=== PATIENT | female | born 1975 ===

== ENCOUNTER 2021-10-17 01:23 | Observation (INO) ==
[2021-10-17] MEDS ORDERED: ONDANSETRON INJ 2 MG/ML 2 ML VIAL IV PRN (04:23)
[2021-10-17] MEDS ORDERED: DEXTROSE 50% 50 ML SYRINGE IV PRN (04:23)
[2021-10-17] MEDS ORDERED: GLUCOSE 40% GEL 15 GM TUBE PO PRN (04:23)
[2021-10-17] MEDS ORDERED: GLUCAGON FOR INJ 1 MG VIAL SQ PRN (04:23)
[2021-10-17] MEDS ORDERED: NITROGLYCERIN SL 0.4 MG/TAB TAB SL PRN (04:23)
[2021-10-17] MEDS ORDERED: CARBOHYDRATES FOR HYPOGLYCEMIA PO PRN (04:23)
[2021-10-17] MEDS ORDERED: GLUCOSE 10 TAB/TUBE PO PRN (04:23)
[2021-10-17] MEDS ORDERED: ACETAMINOPHEN 325 MG TAB PO PRN (04:23)
--- NOTE | 2021-10-17 04:30 | History & Physical Report ---
Date of Service October 17, 2021 Assessment & Plan (1) Syncope: Plan: 46yo female with DM presents as a transfer from [facility] with persistent chest pain x 2 weeks. Patient with a syncopal event, found to have positive HS-troponin and some non-specific EKG changes. Her chest pain description sounds very atypical - reproducible component, non- exertional. No chest pain for > 24 hours now -Telemetry monitoring -Check troponin -Check EKG -Cardiology consultation -Nitro PRN (2) Chest pain: Plan: As above. Atypical chest pain. -Check troponin -Check EKG -Cardiology consultation - patient was transferred for Cardiology assessment, possible stress test or cath (3) Diabetes type 2, controlled: Plan: Last AIC reported to be 6.9%. Patient is on Metformin -Hold metformin -Lantus 4u BID with ISS -Check A1C (4) Hypertension: Plan: Patient reports elevated blood pressure when she was in school. Has not been an issue for many years. No medications -Follow (5) Psoriatic arthritis: Plan: Chronic -Continue Sulfasalazine (6) Neuropathy: Plan: Chronic -Continue Cymbalta and Gabapentin F/E/N - Heplock. Check electrolytes and replete as needed. Heart healthy/CC diet as tolerated Ppx - Lovenox Code - Full Dispo - Admit med-tele Admission and Anticipated Discharge Date Admission Date: October 17, 2021 History of Present Illness Chief Complaint: chest pain Primary Care Provider: Justus Grace Yris Magaña is a pleasant 46yo female with history of DM, HTN, Psoriatic arthritis and ankylosing spondylitis transferred from [facility] for evaluation of chest pain, possible cardiac catheterization On 10/04/21 the patient went to the gym. She did some light weight lifting. No trauma or strain. She developed some chest pain the next day and was given a Medrol dose pack from her PCP and continued on Ibuprofen. The next day on 10/06/21 she had worsening pain. Pain substernal, bandlike with radiation into the arms, neck and back. She describes it as severe, 10/10. Pleuritic in nature at times as well as reproducible. No associated diaphoresis, nausea, shortness of breath or palpitations. She was seen in the ER in [place] and diagnosed with musculoskeletal chest pain. She had a normal EKG. Was given Tramadol which improved the pain and sent home. On 10/13/21 her chest pain reoccurred while she was driving. The pain was severe, bandlike with radiation into the arms and back. She went home and took some Ibuprofen. On 10/14/21 she reports sleeping most of the day. She got up in the afternoon to get her Ibuprofen and then developed nausea and had a syncopal event. Her witnessed the event. Says that her eyes rolled back in her head and she passed out into the shower. She was out approximately 1 minute. No seizure activity. She denies palpitations, shortness of breath or diaphoresis. Chest pain present at the time of syncope. She returned to the ER at [place]. EKG reportedly with non-specific TW changes. HS-troponin initially elevated at 649, then 80 on most recent. Patient was administered Nitro, Morphine and Zofran while in the ER at [place]. She reports relief with these medications. She was seen by the hospitalist team. She had an echocardiogram which showed and EF of 60 - 65% with no regional wall motion abnormalities She has not had chest pain since the afternoon of 10/15/21 Patient transferred at request of Cardiology for evaluation for cardiac catheterization given syncopal event with elevated troponin. She has no personal history of CAD, CHF or arrhythmia. Unable to obtain family history as she is adopted. Risk factors include DM, HTN. No prior stress tests or cardiac interventions. Patient is sedentary at baseline. Does note some SOB with minimal exertion such as walking stairs or hills. Allergies Allergy/AdvReac Type Severity Reaction Status Date / Time ciprofloxacin AdvReac Irritable Verified 10/17/21 04:03 Home Medications Medication Instructions Recorded Confirmed Type celecoxib 200 mg capsule 600 mg PO TID Neuropathy 10/17/21 10/17/21 History duloxetine 60 mg capsule,delayed mg PO 10/17/21 History release metformin 500 mg tablet 500 mg PO BID 10/17/21 10/17/21 History sulfasalazine 500 mg tablet 500 mg PO BID 10/17/21 10/17/21 History Past Med/Surg History Medical History (Updated 10/17/21 @ 04:49 by Mora Stevens DO) Ankylosing spondylitis Diabetes type 2, controlled Hypertension Neuropathy Psoriatic arthritis Surgical History (Updated 10/17/21 @ 04:49 by Mora Stevens DO) History of D&C History of hysteroscopy History of tonsillectomy Family History (Updated 10/17/21 @ 04:49 by Mora Stevens DO) Other Adopted Social History (Updated 10/17/21 @ 04:49 by Mora Stevens DO) Smoking Status: Never smoker Hx Alcohol Use: No Hx Substance Use: No Review of Systems Review of Systems: All systems reviewed & are unremarkable except as noted in HPI & below Physical Exam Physical Exam: General: patient resting comfortably, NAD, non-toxic in appearance, AA&O x 4 Skin: warm, dry, intact, no rashes or lesions HEENT: NC/AT, PERRL, EOMI, anicteric sclera, conjunctiva without injection, external ear normal to inspection and nontender, nares patent, moist mucus membranes, dentition intact, no oropharyngeal lesions, neck supple, trachea midline, no LAD, no thyromegaly, no JVD Heart: +S1/S2, regular, no m/r/g Lungs: equal air entry bilaterally, no rales/rhonchi/wheezes Abd: +BS, soft, NT/ND, no masses/organomegaly/ascites Ext: warm, 2+ pulses in UE/LE bilaterally, no clubbing/cyanosis or edema Neuro: nonfocal, patient AA&O x 4, speech intact, no facial droop, moving all extremities on command with equal strength 5/5 Results & Data Results & Data ([facility]) Vital Signs (Past 12 Hours) Vital Signs Pulse 10/17/21 04:03 81 PG Care Time/CCT Total # of Minutes Spent Total Time Spent with Patient: Total time spent is greater than 50% in coordination of care (as documented) at patient's floor/unit and/or counseling patient: Coding Level of Care Code 63303 Initial Inpt Care Lvl 2 Diagnoses Syncope R55 Chest pain R07.9 Diabetes type 2, controlled E11.9 Hypertension I10 Psoriatic arthritis L40.50 Neuropathy G62.9
[2021-10-17] MEDS ORDERED: Patient's HEIGHT &/or WEIGHT Needed SCH (04:45)
[2021-10-17 06:21] LABS: Basophils # (auto) 0.07 K/uL (0-0.2); Eosinophils # (auto) 0.34 K/uL (0-0.50); Hematocrit (blood only) 40.7 % (34.1-44.9); Hemoglobin 13.5 g/dl (12.0-16.0); Immature Granulocytes # (auto) 0.02 K/uL (0.00-0.02); Immature Granulocytes % (auto) 0.3 %; Lymphocytes # (auto) 1.71 K/uL (1.2-3.4); Mean Corpuscular Hemoglobin 29.9 pg (25.0-34.0); Mean Corpuscular Hgb Conc 33.2 g/dL (32.0-36.0); Mean Corpuscular Volume 90.2 fL (80.0-100.0); Mean Platelet Volume 9.3 fL (9.4-12.3); Monocytes # (auto) 0.57 K/uL (0.24-0.82); Monocytes % (auto) 8.3 %; Neutrophils # (auto) 4.13 K/uL (1.4-6.5); Neutrophils % (auto) 60.4 %; Platelet Count 250 K/uL (130-400); RDW Coefficient of Variation 12.4 % (11.5-14.5); RDW Standard Deviation 41.4 fL (36.4-46.3); Red Blood Count 4.51 M/uL (3.93-5.22); White Blood Count 6.84 K/ul (4.8-10.8)
[2021-10-17 06:51] LABS: Troponin I High Sensitivity 18.9 pg/ml (0-14)
[2021-10-17 06:54] LABS: BUN Creatinine Ratio 16.2 (10-20); Calcium 9.1 mg/dl (8.5-10.1); Creatinine Clr Calc Pharmacy 113.3 ml/min; Est GFR (African American) 113.4 ml/min; Est GFR (Non-African American) 97.8 ml/min; Potassium 4.4 mmol/L (3.5-5.1)
--- NOTE | 2021-10-17 09:02 | Hospitalist Progress Note ---
Date of Service October 17, 2021 Assessment & Plan (1) Syncope: Plan: 46yo female with DM presents as a transfer from [facility] with persistent chest pain x 2 weeks. Patient with a syncopal event, found to have positive HS-troponin and some non-specific EKG changes. Her chest pain description sounds very atypical - reproducible component, non- exertional. No chest pain since 1 day before transfer -Telemetry monitoring -High-sensitivity T troponin has returned to normal -Cardiology consultation recommends inpatient stress testing and inflammatory marker testing -Nitro PRN (2) Chest pain: Plan: As above. Atypical chest pain. EKG with minimal changes troponin returned to normal -Cardiology consultation - patient was transferred for Cardiology assessment, recommending stress test patient feels that she cannot walk on the treadmill because of neuropathy of her feet we will therefore change to a dobutamine stress echo (3) Diabetes type 2, controlled: Plan: Last AIC reported to be 6.9%. Patient is on Metformin -Hold metformin -Lantus 4u BID with ISS -Check A1C (4) Hypertension: Plan: Patient reports elevated blood pressure when she was in school. Has not been an issue for many years. No medications -Follow (5) Psoriatic arthritis: Plan: Chronic -Continue Sulfasalazine (6) Neuropathy: Plan: Chronic -Continue Cymbalta and Gabapentin F/E/N - Heplock. Check electrolytes and replete as needed. Heart healthy/CC diet as tolerated Ppx - Lovenox Code - Full Dispo - Admit med-tele Admission and Anticipated Discharge Date Admission Date: October 17, 2021 Subjective pt has had no further chest pain here, cardiology has seen and recommend stress testing Review of Systems Review of Systems: Mild distress and fatigue no headache, no visual changes no speech or swallowing issues no chest pain, pressure or palpitations no shortness of breath, cough or wheezes no abdominal pain, nausea or vomiting, diarrhea or constipation no dysuria, hematuria or frequency no focal joint pain or swelling no back pain, CVA tenderness or radicular pain no bruising, bleeding or rashes no focal signs of weakness or numbness or altered sensation no complaints of anxiety or depression.. Physical Exam Physical Exam: The patient appeared well nourished and normally developed. Vital signs as documented. Head exam is normocephalic atraumatic Neck is without JVD, thyromegaly, or carotid bruits. Lungs are clear to auscultation, no focal loss of breath sounds Cardiac exam, Rhythm is regular.. Systolic murmur is heard at the right or sternal border Abdominal exam reveals normal bowel sounds, soft non tender, no masses Extremities are nonedematous and both pedal pulses are present Neurologic exam is alert and oriented, no focal loss of strength or sensation Skin is without bruises or rashes Psychologically is without concerns for anxiety or depression.. Results & Data Results & Data ([facility]) Vital Signs (Past 12 Hours) Vital Signs Temp Pulse Pulse Resp BP Pulse Ox O2 Del Method 10/17/21 06:58 98.1 F 69 18 154/91 H 95 Room Air 10/17/21 04:57 97.0 F L 73 18 143/87 H 96 Room Air 10/17/21 04:03 81 PG Care Time/CCT Total # of Minutes Spent Total Time Spent with Patient: Total time spent is greater than 50% in coordination of care (as documented) at patient's floor/unit and/or counseling patient: Coding Level of Care Code 93476 Subseq Hosp Care Lvl 3 Diagnoses Syncope R55 Chest pain R07.9 Diabetes type 2, controlled E11.9 Hypertension I10 Psoriatic arthritis L40.50 Neuropathy G62.9
[2021-10-17] MEDS: INSULIN ASPART PER UNIT SC SCH ×4 (09:05→20:37)
[2021-10-17] MEDS: CeleBREX 200 MG CAP PO SCH ×2 (09:06→20:27)
[2021-10-17] MEDS: DULoxetine HCL 30 MG CAP PO SCH (09:06)
[2021-10-17] MEDS: GABAPENTIN 600 MG TAB PO SCH ×3 (09:06→20:27)
[2021-10-17] MEDS: ENOXAPARIN INJ 40 MG/0.4 ML SYR SQ SCH (09:07)
[2021-10-17] MEDS: LANTUS PER UNIT CHARGE SQ SCH ×2 (09:07→20:37)
[2021-10-17] MEDS: sulfaSALAzine 500 MG TABLET PO SCH ×2 (09:07→20:28)
[2021-10-17] MEDS: ASPIRIN 81 MG ECTAB PO SCH (11:25)
--- NOTE | 2021-10-17 13:05 | Cardiology Consultation ---
Date of Consultation October 17, 2021 History of Present Illness Reason for Consultation: Chest pain, syncope, pleuritic discomfort Attending Physician: Jude Mendes MD History of Present Illness This a 46-year-old female who had chest discomfort about 2 weeks ago all of a sudden she described it as a heaviness but it was worse with a deep breath. She went to the emergency room where she was sent home. She was seen by her family provider and was given steroids and NSAIDs with some improvement. She is also been taking narcotics. The pain intermittently goes away and then intermittently comes back it does seem worse lying flat and worse with a deep breath. It is nonreproducible. She also had a syncopal episode the question is whether this pain was severe enough that it caused her to have syncope. She is unaware of any palpitations or fluttering she denies any recent viral illnesses or upper respiratory tract infections. She denies any arthralgias, night sweats or other constitutional symptoms. She has no lower extremity edema. She notes climbing the stairs did not make it worse but she really was not paying attention sounds like overall she is not very active. There is no radiation of her discomfort to between her shoulder blades she did have some neck discomfort and shoulder discomfort with it. She has any ripping or tearing discomfort. Her appetite stable her weight is stable. The rest of a complete her systems otherwise negative Allergies Allergy/AdvReac Type Severity Reaction Status Date / Time ciprofloxacin AdvReac Irritable Verified 10/17/21 04:03 Home Medications Medication Instructions Recorded Confirmed Type celecoxib 200 mg capsule 600 mg PO TID Neuropathy 10/17/21 10/17/21 History duloxetine 60 mg capsule,delayed mg PO 10/17/21 History release metformin 500 mg tablet 500 mg PO BID 10/17/21 10/17/21 History sulfasalazine 500 mg tablet 500 mg PO BID 10/17/21 10/17/21 History Patient History Medical History Ankylosing spondylitis Diabetes type 2, controlled Hypertension Neuropathy Psoriatic arthritis Surgical History History of D&C History of hysteroscopy History of tonsillectomy Family History Other Adopted Social History Smoking Status: Never smoker Second Hand Exposure: No; Do You Dip or Chew Tobacco: No; Tobacco Cessation Education Requested by Patient: No Hx Alcohol Use: No Hx Substance Use: No Preferred Language: Citizen Of [place] Communication Ability: Effective [employer] Tester Required: No Beliefs That Will Affect Care: None Current Living Situation: Family Other Information That Helps Us Care for You: No Feels Safe at Home: Yes Safety Concerns: Feels Safe At This Time Assistive Devices: Glasses Results & Data ([facility]) Vital Signs (Past 12 Hours) Vital Signs Temp Pulse Pulse Resp BP Pulse Ox O2 Del Method 10/17/21 11:22 73 10/17/21 11:09 36.5 C 69 19 113/76 94 Room Air 10/17/21 06:58 36.7 C 69 18 154/91 H 95 Room Air 10/17/21 04:57 36.1 C L 73 18 143/87 H 96 Room Air 10/17/21 04:03 81 She is awake alert and oriented x3. She does not appear any acute distress. HEENT: 2+ carotid upstrokes nodes or carotid bruits Lungs: Clear to auscultation bilaterally no rales rhonchi or wheezing Heart: Regular rate and rhythm there is a soft systolic ejection murmur which is early peaking of the right sternal border abdomen: Soft nontender senna positive bowel sounds extremities no clubbing cy anosis or edema psychiatric after appear appropriate EKG sinus rhythm IVCD nonspecific T wave changes Her laboratory studies were reviewed Echocardiogram from [place] suggested normal LV function IMPRESSIONS: 1. Chest discomfort which sounds more Pleuritic in nature 2. Suppose it normal echocardiogram without wall motion abnormalities or pericardial effusion from [facility] 3. Psoriatic Arthritis Her EKG Has minimal changes. Her highly sensitive troponin is minimally elevated. She is agreeable to consider stress echocardiography tomorrow to rule out obstructive CAD. My overall feeling is that this is pleuritic in nature and may be related to her underlying rheumatologic issues. I would consider a sed rate and a CRP just to make sure they are not significantly elevated. The fact that her symptoms got better with NSAIDs, steroids, and narcotics would suggest that this is more likely to be pleuritic. There was no evidence of a reproducible component. She has not had any recent viral illnesses.
--- NOTE | 2021-10-17 15:14 | Electrocardiogram Report ---
Test Reason : Blood Pressure : / mmHG Vent. Rate : 075 BPM Atrial Rate : 075 BPM P-R Int : 144 ms QRS Dur : 100 ms QT Int : 394 ms P-R-T Axes : 056 094 021 degrees QTc Int : 439 ms Normal sinus rhythm Rightward axis Nonspecific T wave abnormality No previous ECGs available Confirmed by Riki Hidalgo ([id number]) on 10/17/2021 3:14:11 PM Referred By: Mora Stevens Confirmed By:Riki Hidalgo
[2021-10-17] MEDS ORDERED: MoRPHine SULFATE 2 MG/ML CARP IV PRN (17:47)
[2021-10-18 06:44] LABS: Estimated Average Glucose 143 mg/dl; Hemoglobin A1C 6.6 % (4.5-5.6)
[2021-10-18 07:03] LABS: Bilirubin Direct 0.1 mg/dl (0-0.2); Bilirubin,Total 0.5 mg/dl (0.2-1.0); Creatinine Clr Calc Pharmacy 111.8 ml/min; Est GFR (African American) 111.6 ml/min; Est GFR (Non-African American) 96.3 ml/min; Potassium 4.5 mmol/L (3.5-5.1); Total Protein 6.6 gm/dl (6.0-8.3)
[2021-10-18] MEDS: sulfaSALAzine 500 MG TABLET PO SCH ×2 (09:18→20:45)
[2021-10-18] MEDS: ENOXAPARIN INJ 40 MG/0.4 ML SYR SQ SCH (09:18)
[2021-10-18] MEDS: GABAPENTIN 600 MG TAB PO SCH ×3 (09:18→20:44)
[2021-10-18] MEDS: ASPIRIN 81 MG ECTAB PO SCH (09:18)
[2021-10-18] MEDS: DULoxetine HCL 30 MG CAP PO SCH (09:18)
[2021-10-18] MEDS: CeleBREX 200 MG CAP PO SCH ×2 (09:18→20:44)
[2021-10-18] MEDS: INSULIN ASPART PER UNIT SC SCH ×4 (09:22→20:37)
[2021-10-18] MEDS: LANTUS PER UNIT CHARGE SQ SCH ×2 (09:27→20:55)
--- NOTE | 2021-10-18 10:24 | Electrocardiogram Report ---
Test Reason : Blood Pressure : / mmHG Vent. Rate : 076 BPM Atrial Rate : 076 BPM P-R Int : 146 ms QRS Dur : 094 ms QT Int : 382 ms P-R-T Axes : 045 094 017 degrees QTc Int : 429 ms Normal sinus rhythm Rightward axis Nonspecific T wave abnormality Abnormal ECG When compared with ECG of 17-OCT-2021 05:01, No significant change was found Confirmed by Cooper Morejon ([id number]) on 10/18/2021 10:24:06 AM Referred By: Mora Stevens Confirmed By:Cooper Morejon
[2021-10-18] MEDS ORDERED: METOPROLOL TARTRATE 1 MG/ML VIAL IV ONE (10:38)
[2021-10-18] MEDS ORDERED: DOBUTamine HCL 12.5 MG/ML 20 ML VIAL IV ONE (10:38)
[2021-10-18] MEDS ORDERED: ATROPINE SULFATE 0.1 MG/ML 10ML SYR IV ONE (10:38)
[2021-10-18] MEDS ORDERED: KETOROLAC TROMETHAMINE 15 MG/ML VIAL IV ONE (11:27)
[2021-10-18] MEDS ORDERED: ALUMINUM/MAGNESIUM SUSP 18 ML, LIDOCAINE VISCOUS 2% SOLN 6 ML, BARCODE IDENTIFIER 1 EACH PO ONE (11:45)
[2021-10-18] MEDS ORDERED: ALUMINUM/MAGNESIUM SUSP 72 ML, LIDOCAINE VISCOUS 2% SOLN 24 ML, BARCODE IDENTIFIER 1 EACH PO PRN (15:15)
--- NOTE | 2021-10-18 16:10 | XCELERA ---
[id number]
[2021-10-18] MEDS: SUCRALFATE 1 GM/10 ML UDC PO SCH ×2 (16:57→20:43)
--- NOTE | 2021-10-18 18:51 | Hospitalist Progress Note ---
Date of Service October 18, 2021 Assessment & Plan (1) Syncope: Plan: 46yo female with DM presents as a transfer from [facility] with persistent chest pain x 2 weeks. Patient with a syncopal event, found to have positive HS-troponin and some non-specific EKG changes. Her chest pain description sounds very atypical - reproducible component, non- exertional. No chest pain since 1 day before transfer -High-sensitivity T troponin has returned to normal -Cardiology consultation reports negative dobutamine inpatient stress testing and inflammatory marker testing with EsR is low, no effusion seen on echo - (2) Chest pain: Plan: As above. Atypical chest pain. EKG with minimal changes troponin returned to normal -negative dobutamine stress echo with celebrex and sulfasalazine, will consider GI source, add carafate and protonix , if GI cannot completely link syncope (3) Diabetes type 2, controlled: Plan: Last AIC reported to be 6.9%. Patient is on Metformin -Hold metformin -Lantus 4u BID with ISS -Check A1C (4) Hypertension: Plan: Patient reports elevated blood pressure when she was in school. Has not been an issue for many years. 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 Physical Exam Physical Exam: The patient appeared well nourished and normally developed. Vital signs as documented. Head exam is normocephalic atraumatic Neck is without JVD, thyromegaly, or carotid bruits. Lungs are clear to auscultation, no focal loss of breath sounds Cardiac exam, Rhythm is regular.. Systolic murmur is heard at the right or sternal border Abdominal exam reveals normal bowel sounds, soft non tender, no masses Extremities are nonedematous and both pedal pulses are present Neurologic exam is alert and oriented, no focal loss of strength or sensation Skin is without bruises or rashes Psychologically is without concerns for anxiety or depression.. Results & Data Results & Data ([facility]) Vital Signs (Past 12 Hours) Vital Signs Temp Pulse Pulse Resp BP Pulse Ox O2 Del Method 10/18/21 15:17 97.9 F 70 18 119/77 95 Room Air 10/18/21 12:06 98.1 F 69 18 146/86 H 96 Room Air 10/18/21 07:30 97.9 F 66 18 122/78 94 Room Air 10/18/21 08:10 67 PG Care Time/CCT Total # of Minutes Spent Total Time Spent with Patient: Total time spent is greater than 50% in coordination of care (as documented) at patient's floor/unit and/or counseling patient: Coding Level of Care Code 14018 Subseq Hosp Care Lvl 3 Diagnoses Syncope R55 Chest pain R07.9 Diabetes type 2, controlled E11.9 Hypertension I10 Psoriatic arthritis L40.50 Neuropathy G62.9
[2021-10-18] MEDS: PANTOprazole 40 MG TAB PO SCH (20:42)
[2021-10-19] MEDS: sulfaSALAzine 500 MG TABLET PO SCH (08:23)
[2021-10-19] MEDS: GABAPENTIN 600 MG TAB PO SCH (08:24)
[2021-10-19] MEDS: ASPIRIN 81 MG ECTAB PO SCH (08:24)
[2021-10-19] MEDS: CeleBREX 200 MG CAP PO SCH (08:24)
[2021-10-19] MEDS: PANTOprazole 40 MG TAB PO SCH (08:25)
[2021-10-19] MEDS: DULoxetine HCL 30 MG CAP PO SCH (08:25)
[2021-10-19] MEDS: SUCRALFATE 1 GM/10 ML UDC PO SCH (08:25)
[2021-10-19] MEDS: ENOXAPARIN INJ 40 MG/0.4 ML SYR SQ SCH (08:26)
[2021-10-19] MEDS: LANTUS PER UNIT CHARGE SQ SCH (08:30)
[2021-10-19] MEDS: INSULIN ASPART PER UNIT SC SCH (08:30)
== END 2021-10-19 11:02 | disposition home or self-care (01) ==
LOC: SUATTDRO 03:42 → 2S 03:42 → INTOOBSV 04:24